=== PATIENT | female | born 2005 | race Caucasian/White ===

== ENCOUNTER 2025-07-28 00:27 | Inpatient (IN) | payer OTHER, SELFPAY ==
[~2025-07-28] VITALS: Ht 162.6 cm; Wt 75.0 kg
[~2025-07-28 00:27] MED LIST: ROZE8TAB16 PO
[2025-07-28 01:30] LABS: BASO # 0.1 10^3/uL (0.0-0.2); BASO % 0.5 % (0.0-1.0); EOS # 0.2 10^3/uL (0.0-0.5); EOS % 0.9 % (0.0-3.0); LYMPH # 3.6 10^3/uL (1.5-5.0); LYMPH % 16.5 % (24.0-44.0); MONO # 2.1 10^3/uL (0.0-0.8); MONO % 9.5 % (2.0-8.0); NEUTROPHILS # 15.8 10^3/uL (1.5-8.5); NEUTROPHILS % 72.2 % (36.0-66.0); PLATELET COUNT, AUTOMATED 253 10^3/uL (150-450)
[2025-07-28 02:06] LABS: ALT/SGPT 17 U/L (7.0-40); AST/SGOT 19 U/L (<34); CALCIUM LEVEL 8.8 MG/DL (8.5-10.1); CARBON DIOXIDE LEVEL 29 MMOL/L (20-31); CHLORIDE LEVEL 102 MMOL/L (98-107); CREATININE FOR GFR 0.69 MG/DL (0.55-1.30); GLOMERULAR FILTRATION RATE > 90.0 (>60); POTASSIUM SERUM 4.0 MMOL/L (3.5-5.1); SODIUM LEVEL 140 MMOL/L (136-145)
[2025-07-28 02:15] LABS: HCG, SERUM QUALITATIVE NEGATIVE (NEGATIVE)
[2025-07-28 04:13] LABS: APPEARANCE, URINE HAZY (CLEAR); BILIRUBIN, URINE AUTO NEGATIVE (NEGATIVE); BLOOD, URINE BLOOD NEGATIVE (NEGATIVE); GLUCOSE, URINE (UA) AUTO NEGATIVE (NEGATIVE); KETONE, URINE AUTO NEGATIVE (NEGATIVE); LEUKOCYTE ESTERASE, URINE AUTO NEGATIVE (NEGATIVE); NITRITE, URINE AUTO NEGATIVE (NEGATIVE); PROTEIN, URINE AUTO NEGATIVE (NEGATIVE); SPECIFIC GRAVITY URINE AUTO 1.014 (1.002-1.035); UROBILINOGEN, URINE AUTO 2.0 mg/dL (0.0-2.0)
[2025-07-28 04:14] LABS: BACTERIA, URINE AUTO NEGATIVE (NEGATIVE); MUCUS, URINE SMALL (NEGATIVE); RBC, URINE AUTO 1 /HPF (0-3); SQUAMOUS EPITHELIAL CELL UR AU 19 /HPF (0-6); WBC, URINE AUTO 1 /HPF (0-3)
[2025-07-28] MEDS ORDERED: ISOVUE-370 76% 100 ML VIAL As Ordered ONE (04:25)
[2025-07-28] MEDS: NS (Normal Saline) 0.9% 1,000 ML IV ONE (04:37)
[2025-07-28] MEDS: ACETAMINOPHEN *IV* 1,000 MG in IV 1 EA IV ONE (04:38)
[2025-07-28] MEDS: KETOROLAC 30 MG/ML 1 ML VIAL IV ONE (07:54)
[2025-07-28] MEDS: ONDANSETRON 4MG/2ML VIAL IV ONE (07:54)
[2025-07-28] MEDS: PIPERACILLIN/TAZOBACTAM SOD 3.375 GM in DEXTROSE 5% (D5W) ADV/MINI-BAG 50 ML IV ONE (08:24)
[2025-07-28] MEDS ORDERED: RAMELTEON 8 MG TAB PO PRN (09:30)
[2025-07-28] MEDS: PANTOPRAZOLE 40MG VIAL IV SCH (10:57)
[2025-07-28] MEDS ORDERED: METR-265 PO (11:12)
[2025-07-28] MEDS ORDERED: D 101000 PO (11:12)
[2025-07-28] MEDS ORDERED: PANT40TA29 PO (11:12)
[2025-07-28] MEDS ORDERED: ESZO1TAB4 PO (11:12)
[2025-07-28] MEDS ORDERED: LEVO1TAB40 PO (11:12)
[2025-07-28] MEDS ORDERED: SERT25TA85 PO (11:12)
[2025-07-28] MEDS ORDERED: FERR325T3 PO (11:12)
[2025-07-28] MEDS ORDERED: MORP15TA2 PO (11:12)
[2025-07-28 11:40] VITALS: BP 116/61; TEMP 99.9; O2SAT 98
[2025-07-28] MEDS ORDERED: BANO25TA PO (12:40)
[2025-07-28] MEDS ORDERED: HOME MED LIST COMPLETE! XX SCH (12:45)
[2025-07-28] MEDS: NS (Normal Saline) 0.9% 1,000 ML IV SCH (13:54)
[2025-07-28] MEDS: KETOROLAC 30 MG/ML 1 ML VIAL IV PRN (13:54)
[2025-07-28] MEDS: PIPERACILLIN/TAZOBACTAM SOD 3.375 GM in DEXTROSE 5% (D5W) ADV/MINI-BAG 50 ML IV SCH (13:54)
[2025-07-28 14:00] VITALS: TEMP 100.2; O2SAT 98
[2025-07-28 15:30] VITALS: BP 126/59; TEMP 96.8; O2SAT 98
[2025-07-28] MEDS: SERTRALINE HCL 25 MG TABLET PO SCH (17:07)
[2025-07-28] MEDS: ACETAMINOPHEN 325 MG TAB PO PRN (17:13)
[2025-07-28 20:00] VITALS: BP 126/63; TEMP 98.9; O2SAT 99
[2025-07-29 01:30] VITALS: BP 126/57; TEMP 99.5; O2SAT 96
[2025-07-29] MEDS: ONDANSETRON 4MG/2ML VIAL IV PRN (01:30)
[2025-07-29 05:30] VITALS: BP 118/56; TEMP 99.1; O2SAT 97
[2025-07-29 07:45] LABS: BASO # 0.0 10^3/uL (0.0-0.2); BASO % 0.2 % (0.0-1.0); EOS # 0.1 10^3/uL (0.0-0.5); EOS % 0.4 % (0.0-3.0); LYMPH # 1.2 10^3/uL (1.5-5.0); LYMPH % 8.8 % (24.0-44.0); MONO # 1.0 10^3/uL (0.0-0.8); MONO % 7.7 % (2.0-8.0); NEUTROPHILS # 10.8 10^3/uL (1.5-8.5); NEUTROPHILS % 82.7 % (36.0-66.0); PLATELET COUNT, AUTOMATED 202 10^3/uL (150-450)
[2025-07-29 08:10] LABS: CALCIUM LEVEL 8.0 MG/DL (8.5-10.1); CARBON DIOXIDE LEVEL 27 MMOL/L (20-31); CHLORIDE LEVEL 104 MMOL/L (98-107); CREATININE FOR GFR 0.63 MG/DL (0.55-1.30); GLOMERULAR FILTRATION RATE > 90.0 (>60); POTASSIUM SERUM 4.1 MMOL/L (3.5-5.1); SODIUM LEVEL 141 MMOL/L (136-145)
[2025-07-29 08:30] VITALS: BP 117/57; TEMP 99.9; O2SAT 96
[2025-07-29 12:02] VITALS: BP 124/70; TEMP 98.5; O2SAT 98
[2025-07-29 16:00] VITALS: BP 126/66; TEMP 98.4; O2SAT 98
[2025-07-29 20:00] VITALS: BP 124/67; TEMP 98.9; O2SAT 99
[2025-07-30 02:00] VITALS: BP 105/58; TEMP 97.7; O2SAT 97
[2025-07-30 05:45] VITALS: BP 123/69; TEMP 98.1; O2SAT 98
[2025-07-30 07:59] LABS: BASO # 0.0 10^3/uL (0.0-0.2); BASO % 0.4 % (0.0-1.0); EOS # 0.2 10^3/uL (0.0-0.5); EOS % 2.0 % (0.0-3.0); LYMPH # 2.1 10^3/uL (1.5-5.0); LYMPH % 21.9 % (24.0-44.0); MONO # 1.2 10^3/uL (0.0-0.8); MONO % 12.7 % (2.0-8.0); NEUTROPHILS # 6.1 10^3/uL (1.5-8.5); NEUTROPHILS % 62.7 % (36.0-66.0); PLATELET COUNT, AUTOMATED 190 10^3/uL (150-450)
[2025-07-30 08:22] LABS: CALCIUM LEVEL 8.0 MG/DL (8.5-10.1); CARBON DIOXIDE LEVEL 26 MMOL/L (20-31); CHLORIDE LEVEL 109 MMOL/L (98-107); CREATININE FOR GFR 0.65 MG/DL (0.55-1.30); GLOMERULAR FILTRATION RATE > 90.0 (>60); POTASSIUM SERUM 3.9 MMOL/L (3.5-5.1); SODIUM LEVEL 144 MMOL/L (136-145)
[2025-07-30 09:00] VITALS: BP 130/73; TEMP 97.6; O2SAT 99
[2025-07-30] MEDS ORDERED: ACET-897 PO (09:52)
[2025-07-30] MEDS ORDERED: AMOX875T2 PO (09:52)
[2025-07-30] MEDS ORDERED: FIBE625T PO (09:52)
[2025-07-31] MEDS ORDERED: SERTRALINE HCL 50 MG TAB PO SCH (09:00)
== END 2025-07-30 11:55 | disposition home or self-care (01) | DRG 872 ==
LOC: M ED 00:27 → M ED INP 09:27 → M PED 11:40
PROVIDERS: ADMIT Internal Medicine Nephrology; ATTEND Internal Medicine Nephrology
DX: A41.9 Sepsis, unspecified organism (principal); A09 Infectious gastroenteritis and colitis, unspecified; G47.33 Obstructive sleep apnea (adult) (pediatric); D64.9 Anemia, unspecified; G43.909 Migraine, unspecified, not intractable, without status migrainosus; F32.A Depression, unspecified; F41.9 Anxiety disorder, unspecified; F43.10 Post-traumatic stress disorder, unspecified; G47.00 Insomnia, unspecified; K59.00 Constipation, unspecified; Z79.899 Other long term (current) drug therapy